=== PATIENT | female | born 1985 | race Caucasian/White ===

== ENCOUNTER 2024-03-26 23:05 | Emergency (ER) | payer MEDICAID ==
[~2024-03-26] VITALS: Ht 162.6 cm; Wt 61.4 kg
[~2024-03-26 23:05] MED LIST: NO HOME MEDS
[2024-03-26 23:06] VITALS: TEMP 98.7
[2024-03-26] MEDS: ketorolac trometh 15mg/ml vial 15 MG/ML ML IM ONE (23:47)
[2024-03-26] MEDS ORDERED: ondansetron 4mg rapidly disintigrating tab PO ONE (23:50)
[2024-03-26 23:57] VITALS: BP 130/76; PULSE 72; RESP 18; O2SAT 99
== END 2024-03-26 23:58 | disposition home or self-care (01) ==
LOC: ER 23:05
DX: M79.674 Pain in right toe(s) (principal); Z98.890 Other specified postprocedural states
CPT/HCPCS: 96372; 99283; J1885

== ENCOUNTER 2025-01-03 20:03 | Emergency (ER) | payer MEDICAID ==
[~2025-01-03] VITALS: Ht 162.6 cm; Wt 75.6 kg
[2025-01-03 20:24] VITALS: BP 176/95; PULSE 78; RESP 15; TEMP 98.6; O2SAT 98
--- NOTE | 2025-01-03 21:35 | Physician Documentation ---
History of Present Illness ~ Chief Complaint: Abscess Stated Complaint: "LUMP ON LEG" Time Seen by MD: 20:32 Primary Medical Doctor: [facility] HPI This is a very pleasant 39-year-old female presents to the ED with a complaint of a developing abscess in her right groin area. States she has use warm compresses to the best of her bili but the abscess has persisted. Denies any fevers or shortness of breath or nausea or vomiting States she is otherwise healthy denies any history of diabetes. Day of Onset: Jan 03, 2025 Tetanus Within 5 Years: No Medication Reconciliation Allergies: Coded Allergies: codeine (Verified Allergy, Unknown, 01/03/25) itching Scheduled Cephalexin*Monohydrate* (Keflex*), 1 CAP PO QID Sulfamethoxazole/Trimethoprim (Septra Ds Tab), 1 TAB PO Q12H Miscellaneous Medications Home Med List (No Home Medications), (Reported) Past Medical History Past Medical History: No Pertinent History Past Surgical History: Review of Systems All Other Systems at this time: Reviewed and Negative ROS As stated above in the HPI, otherwise all systems are reviewed and negative. Physical Exam Vital Signs: Temperature: 98.6, Source: Temporal, Heart Rate: 78, Respiratory Rate: 15, BP: 176/95, Pulse Oximetry: 98, Weight: 75.600 Physical Exam General: Alert, no apparent distress. Extremities: Normal range of motion, no deformity. Small abscess in the right upper medial aspect of the thigh. Surrounding erythema Neurologic: Oriented x4. Psychiatric: Normal mood and affect. Skin: Normal color, warm and dry. No edema, no ecchymosis. Procedures I & D Procedure : Anesthesia: Lidocaine w/ Epi Blade Size: 11 Prep/Supplies: dressing applied Incision: pus drained Tolerated Procedure Well?: yes, no complications Progress Results/Orders Results/Orders Orders - ALMAS COHEN PARENT AIDE General Nursing Order (01/03/25 ) Completed Orders - ALMAS COHEN PARENT AIDE Lidocaine/Epi/Tetracaine Top (Lidocaine/ (01/03/25 21:35) Lidocaine 1% W/Epi 1:100,000 (Xylocaine (01/03/25 21:35) Cephalexin Capsule (Keflex Capsule) (01/03/25 21:35) Sulfamethox/Trimetho. Ds Tab (Septra Ds (01/03/25 21:35) Vital Signs 01/03/25 20:24 Temp 98.6 Pulse 78 Resp 15 B/P (MAP) 176/95 Pulse Ox 98 Medical Decision Making Findings Made a small incision in the affected region of the medial aspect of the right thigh this was after infusing lidocaine with epi 1%. A moderate amount of purulent discharge was drained. Packing is not necessary as the abscess was of D loculated in did not appear to be large or tunneling Patient was bandaged and placed in antibiotic Differential Dx:Considerations: Include: Abscess, Bacteremia, Cellulitis, Erysipelas, Felon, Gas gangrene, Hidrademitis suppurativa, Impetigo, Lymphangitis, Osteromyelitis, Paronychia, Septicemia, Other Departure Disposition: 01 HOME / SELF CARE / HOMELESS Impression: Primary Impression: Abscess Condition: Stable Discharge Instructions: Skin Abscess, [id number] Referrals: NO PRIMARY CARE PROVIDER (PCP) Prescriptions Cephalexin*Monohydrate* (Keflex*) 500 Mg Capsule 1 CAP PO QID, #40 CAP Prov: ALMAS COHEN NP 01/03/25 Sulfamethoxazole/Trimethoprim (Septra Ds Tab) 800 Mg/160 Mg Tablet 1 TAB PO Q12H for 10 Days, #20 TAB Prov: ALMAS COHEN PARENT AIDE 01/03/25 Education Educated: Patient Signature Scribe Signature: f Attestation: Scribed for Almas Cohen Client Application Support Specialist by Almas Ferrer NP . 01/06/25 20:15 ALMAS COHEN NP Jan 03, 2025 21:35
[2025-01-03] MEDS ORDERED: SULF1TAB45 PO (21:36)
[2025-01-03] MEDS ORDERED: CEPH-585 PO (21:37)
[2025-01-03] MEDS: sulfamethoxazole/trimethoprim DS (800/160mg) tablet PO ONE (21:51)
[2025-01-03] MEDS: LIDOcaine/epinephrine/tetracaine TOPICAL sol 3 ML syringe TOP ONE (21:52)
[2025-01-03] MEDS: LIDOcaine 1% W/epiNEPHrine 1:100,000 20ml vial SQ ONE (21:54)
== END 2025-01-03 22:23 | disposition home or self-care (01) ==
LOC: ER 20:04
DX: L02.214 Cutaneous abscess of groin (principal); Z88.5 Allergy status to narcotic agent; Z79.899 Other long term (current) drug therapy
CPT/HCPCS: 10060; 99284; J3490; A6253; A6449